=== PATIENT | female | born 1990 | race Caucasian/White ===

== ENCOUNTER → 2016-09-10 | Outpatient (CLI) | payer OTHER ==
[~2016-09-10] MED LIST: PRENTAB69 PO
== END | disposition home or self-care (01) ==
LOC: C.PAPS 10:34
PROVIDERS: ATTEND Physician Assistant
DX: Z01.419 Encounter for gynecological examination (general) (routine) without abnormal findings (principal)

== ENCOUNTER → 2017-04-21 | Outpatient (CLI) | payer OTHER ==
[2017-04-23 01:28] LABS: URCREATININE 197.1 MG/DL (>/= 20)
== END | disposition home or self-care (01) ==
LOC: C.LABBFT 15:21
PROVIDERS: ATTEND Internal Medicine
DX: Z02.1 Encounter for pre-employment examination (principal)

== ENCOUNTER → 2017-06-26 | Outpatient (CLI) | payer OTHER | END | disposition home or self-care (01) | LOC: C.LABSPEC 17:38 | PROVIDERS: ATTEND Obstetrics & Gynecology | DX: Z34.81 Encounter for supervision of other normal pregnancy, first trimester (principal) ==

== ENCOUNTER → 2017-07-03 | Outpatient (CLI) | payer OTHER ==
[2017-07-03 17:29] LABS: BASO % 0.2 %; BASO ABS # 0.02 K/uL (0-0.2); EOS ABS # 0.16 K/uL (0-0.5); HEMATOCRIT 36.1 % (37-47); HEMOGLOBIN 12.4 g/dL (12.0-16.0); IG# 0.01 K/uL (0.00-0.02); LYMPH % 19.8 %; LYMPH ABS # 1.59 K/uL (1.2-3.4); MEAN CELL VOLUME 90.9 fL (80-100); MEAN CORPUSCULAR HEMOGLOBIN 31.2 pg (25-34); MEAN CORPUSCULAR HGB CONC 34.3 g/dl (32-36); MEAN PLATELET VOLUME 9.9 fL (7.4-10.4); MONO % 7.2 %; MONO ABS # 0.58 K/uL (0.11-0.59); NEUT % 70.7 %; NEUT ABS # 5.69 K/uL (1.4-6.5); PLATELET COUNT 177 K/uL (130-400); RED CELL DISTRIBUTION WIDTH CV 12.5 % (11.5-14.5); RED CELL DISTRIBUTION WIDTH SD 41.3 fL (36.4-46.3); WHITE BLOOD COUNT 8.05 K/uL (4.8-10.8)
== END | disposition home or self-care (01) ==
LOC: C.LAB1850 16:22
PROVIDERS: ATTEND Obstetrics & Gynecology
DX: Z34.81 Encounter for supervision of other normal pregnancy, first trimester (principal)

== ENCOUNTER 2017-07-13 11:16 | Emergency (ER) | payer OTHER ==
[~2017-07-13] VITALS: Ht 167.6 cm; Wt 71.3 kg
[2017-07-13 11:29] VITALS: TEMP 36.8; Ht 167.6 cm; Wt 71.3 kg
[2017-07-13] MEDS ORDERED: AMX500 PO (11:51)
[2017-07-13] MEDS ORDERED: PRENTAB26 PO (11:51)
[2017-07-13 12:29] LABS: BASO % 0.3 %; BASO ABS # 0.02 K/uL (0-0.2); EOS % 2.2 %; EOS ABS # 0.14 K/uL (0-0.5); HEMATOCRIT 35.9 % (37-47); HEMOGLOBIN 12.5 g/dL (12.0-16.0); IG# 0.01 K/uL (0.00-0.02); LYMPH % 16.9 %; LYMPH ABS # 1.08 K/uL (1.2-3.4); MEAN CELL VOLUME 89.5 fL (80-100); MEAN CORPUSCULAR HEMOGLOBIN 31.2 pg (25-34); MEAN CORPUSCULAR HGB CONC 34.8 g/dl (32-36); MEAN PLATELET VOLUME 9.7 fL (7.4-10.4); MONO % 6.7 %; MONO ABS # 0.43 K/uL (0.11-0.59); NEUT % 73.7 %; NEUT ABS # 4.72 K/uL (1.4-6.5); PLATELET COUNT 156 K/uL (130-400); RED CELL DISTRIBUTION WIDTH CV 12.7 % (11.5-14.5); RED CELL DISTRIBUTION WIDTH SD 41.1 fL (36.4-46.3)
[2017-07-13 12:47] LABS: ALBUMIN 3.4 gm/dl (3.4-5.0); CALCIUM 8.9 mg/dl (8.5-10.1); CREATININE 0.59 mg/dl (0.60-1.20); POTASSIUM 3.3 mmol/L (3.5-5.1)
--- NOTE | 2017-07-13 14:13 | DIAGNOSTIC IMAGING REPORT ---
<14 WKS SINGLE CLINICAL HISTORY: EVAL IUP, VAGINAL BLEEDING TECHNIQUE: Transabdominal sonography of the pelvis was performed. COMPARISON STUDY: ultrasound July 07, 2017. FINDINGS: Single viable intrauterine gestation is noted. Uterus measures 10 x 6.7 x 5.5 cm. [place]-rump length is 2.66 cm which corresponds to an estimated gestational age of 9 weeks and 3 days. heart rate is normal 173 bpm. Yolk sac measures 4 mm in size. The placenta is located anteriorly without evidence of previa. The cervix appears closed. The right ovary was not visualized. A suspected 1.1 cm left ovarian corpus luteal cyst was noted. IMPRESSION: 1. Single viable intrauterine gestation with normal heart rate of 173 bpm. 2. Anterior placenta. No placental abnormality. 3. Suspected 1.1 cm left ovarian corpus luteal cyst. Nonvisualization of the right ovary. Electronically signed by: Guanaco Peacock M.D. 07/13/2017 2:12 PM Dictated Date/Time: 07/13/2017 1:39 PM
--- NOTE | 2017-07-13 14:57 | EMERGENCY ROOM VISIT NOTE ---
ED Visit Note First contact with patient: 11:32 CHIEF COMPLAINT: Vaginal bleeding 30 minutes HISTORY OF PRESENT ILLNESS: Patient is a roughly 9 week 27-year- old white female patient who presents the emergency department accompanied by her mother for evaluation of vaginal bleeding. Patient reports that her last menstrual period was 05/05/2017. She had a positive home test in mid May, and was recently seen by [facility] TELEPHONE STATION REPAIRER for both her nurse and physician appointment. She had an ultrasound which confirmed an intrauterine . She had normal laboratory studies done for her first visit. Patient states that she has been feeling well, and denies any complications with the thus far. She has had some very slight, minor pelvic cramping. She states that about 30 minutes ago, she went to urinate and noticed that she had bright red blood in her underwear, and bright red blood when she wiped. She denies any pain associated with this. She denies any abdominal trauma or recent heavy lifting, last intercourse was last evening. She denies any urinary symptoms. She is presently taking amoxicillin for a UTI prescribed by the drier operator. She denies any lightheadedness or dizziness. REVIEW OF SYSTEMS: Review of systems as per HPI. All other systems reviewed were negative. 10 systems reviewed. PMH: Electronic medical records are reviewed and summarized as above/below. See Problem List. SOCIAL HISTORY: Patient lives at home with her son. She is employed. Non- smoker. PHYSICAL EXAM: Vital Signs: Reviewed Nurse's notes. CONSTITUTIONAL: Patient is a slightly anxious, otherwise well-appearing 27-year- old white female who is awake and alert and in no distress. Vital signs are stable. EYES: Pupils equal, round, reactive to light and accommodation. EOMs intact without nystagmus. Sclera are anicteric. ENT: Tympanic membranes intact, with normal landmarks. External canals are clear. Oral and nasopharynx are clear. Mucous membranes are moist, no lesions , tongue and gums appear normal. CARDIOVASCULAR: Regular rate and rhythm, with normal S1 and S2, no murmur or gallop or rub is heard. No carotid bruits auscultated. No JVD. Peripheral pulses easily palpable. RESPIRATORY: Breath sounds equal and clear to auscultation without wheezes, rales, or rhonchi heard. Full and equal chest expansion without accessory muscle use or retractions. ABDOMEN: Bowel sounds are present. Abdomen is soft, nontender, nondistended throughout. There is no guarding, rebound or rigidity. INTEGUMENTARY: No lesions or rash, normal skin turgor. LYMPH: No lymphadenopathy. EMERGENCY DEPARTMENT COURSE: The patient was seen and evaluated. Her old records are reviewed, including her recent outpatient laboratory studies. Her blood type is confirmed as B+. She presents the emergency department for evaluation of the abrupt onset of vaginal bleeding this morning. IV lock was initiated and laboratory studies were collected including CBC with differential , CMP and a quantitative hCG. Urinalysis was also collected. Pelvic ultrasound was performed. Laboratory studies noted a normal H&H at 12.5 and 35.9, platelet count 156,000. Chemistries are unremarkable. Quantitative hCG is greater than 95,000, which is consistent with her dates. Urinalysis notes blood and epithelial cells, there are no other indicators for infection. Pelvic ultrasound confirms a single viable intrauterine gestation measuring roughly 9 weeks 3 days, with confirmed cardiac activity at 173 bpm. There is no other significant abnormality noted. All laboratory and diagnostic imaging studies were reviewed with the patient. She was reassured. At this time the source of her bleeding is unclear. There is no evidence for spontaneous miscarriage at this time, differential diagnoses also entertained included subchorionic hemorrhage, placenta previa, placental abruption, coagulopathy, intrauterine demise, among others. The patient was given bleeding precautions. She was encouraged to follow-up with TELEPHONE STATION REPAIRER for further care and evaluation. She was discharged home in stable condition. Medication reconciliation: I attest that I have personally reviewed the patient' s current medication list. Blood pressure screening : Patient was found to have low-normal blood pressure on screening and does not require follow-up. <14 WKS SINGLE CLINICAL HISTORY: EVAL IUP, VAGINAL BLEEDING TECHNIQUE: Transabdominal sonography of the pelvis was performed. COMPARISON STUDY: ultrasound July 07, 2017. FINDINGS: Single viable intrauterine gestation is noted. Uterus measures 10 x 6.7 x 5.5 cm. [place]-rump length is 2.66 cm which corresponds to an estimated gestational age of 9 weeks and 3 days. heart rate is normal 173 bpm. Yolk sac measures 4 mm in size. The placenta is located anteriorly without evidence of previa. The cervix appears closed. The right ovary was not visualized. A suspected 1.1 cm left ovarian corpus luteal cyst was noted. IMPRESSION: 1. Single viable intrauterine gestation with normal heart rate of 173 bpm. 2. Anterior placenta. No placental abnormality. 3. Suspected 1.1 cm left ovarian corpus luteal cyst. Nonvisualization of the right ovary. Problem List Social History Problems: (1) Asthma Status: Chronic Current/Historical Medications Scheduled Amoxicillin (Amoxicillin), Unknown Dose PO TID Multivit/Min/Iron/Fol Ac/Pren ( Vitamin), 1 TAB PO DAILY Allergies Coded Allergies: No Known Allergies (Unverified , 07/13/17) Vital Signs Date Time Temp Pulse Resp B/P (MAP) Pulse Ox O2 Delivery O2 Flow Rate FiO2 07/13/17 15:15 61 111/52 98 07/13/17 13:44 62 114/59 100 Room Air 07/13/17 11:29 36.8 68 20 117/65 100 Room Air Laboratory Results 07/13/17 11:57 Red Blood Count 4.01, Mean Corpuscular Volume 89.5, Mean Corpuscular Hemoglobin 31.2, Mean Corpuscular Hemoglobin Concent 34.8, Mean Platelet Volume 9.7, Neutrophils (%) (Auto) 73.7, Lymphocytes (%) (Auto) 16.9, Monocytes (%) (Auto) 6.7, Eosinophils (%) (Auto) 2.2, Basophils (%) (Auto) 0.3, Neutrophils # (Auto) 4.72, Lymphocytes # (Auto) 1.08, Monocytes # (Auto) 0.43, Eosinophils # (Auto) 0.14, Basophils # (Auto) 0.02 07/13/17 11:57 Test 07/13/17 11:57 07/13/17 12:00 White Blood Count 6.40 K/uL (4.8-10.8) Red Blood Count 4.01 M/uL (4.2-5.4) Hemoglobin 12.5 g/dL (12.0-16.0) Hematocrit 35.9 % (37-47) Mean Corpuscular Volume 89.5 fL (80-100) Mean Corpuscular Hemoglobin 31.2 pg (25-34) Mean Corpuscular Hemoglobin Concent 34.8 g/dl (32-36) Platelet Count 156 K/uL (130-400) Mean Platelet Volume 9.7 fL (7.4-10.4) Neutrophils (%) (Auto) 73.7 % Lymphocytes (%) (Auto) 16.9 % Monocytes (%) (Auto) 6.7 % Eosinophils (%) (Auto) 2.2 % Basophils (%) (Auto) 0.3 % Neutrophils # (Auto) 4.72 K/uL (1.4-6.5) Lymphocytes # (Auto) 1.08 K/uL (1.2-3.4) Monocytes # (Auto) 0.43 K/uL (0.11-0.59) Eosinophils # (Auto) 0.14 K/uL (0-0.5) Basophils # (Auto) 0.02 K/uL (0-0.2) RDW Standard Deviation 41.1 fL (36.4-46.3) RDW Coefficient of Variation 12.7 % (11.5-14.5) Immature Granulocyte % (Auto) 0.2 % Immature Granulocyte # (Auto) 0.01 K/uL (0.00-0.02) Anion Gap 10.0 mmol/L (3-11) Est Creatinine Clear Calc Drug Dose 144.9 ml/min Estimated GFR () 145.6 Estimated GFR (Non- 125.6 BUN/Creatinine Ratio 9.7 (10-20) Calcium Level 8.9 mg/dl (8.5-10.1) Total Bilirubin 0.3 mg/dl (0.2-1) Aspartate Amino Transf (AST/SGOT) 10 U/L (15-37) Alanine Aminotransferase (ALT/SGPT) 15 U/L (12-78) Alkaline Phosphatase 52 U/L (45-117) Total Protein 7.0 gm/dl (6.4-8.2) Albumin 3.4 gm/dl (3.4-5.0) Globulin 3.6 gm/dl (2.5-4.0) Albumin/Globulin Ratio 0.9 (0.9-2) Human Chorionic Gonadotropin, Quant 54060 mIU/mL Urine Color YELLOW Urine Appearance CLEAR (CLEAR) Urine pH 5.0 (4.5-7.5) Urine Specific [place] 1.018 (1.000-1.030) Urine Protein NEG (NEG) Urine Glucose (UA) NEG (NEG) Urine Ketones NEG (NEG) Urine Occult Blood 3+ (NEG) Urine Nitrite NEG (NEG) Urine Bilirubin NEG (NEG) Urine Urobilinogen NEG (NEG) Urine Leukocyte Esterase NEG (NEG) Urine WBC (Auto) 0 /hpf (0-5) Urine RBC (Auto) >30 /hpf (0-4) Urine Hyaline Casts (Auto) 1-5 /lpf (0-5) Urine Epithelial Cells (Auto) >30 /lpf (0-5) Urine Bacteria (Auto) NEG (NEG) Departure Information Impression Primary Impression: Vaginal bleeding affecting early Referrals Sandra Peacock M.D. (PCP) Patient Instructions My [facility] Additional Instructions Acetaminophen(Tylenol) may be used for fever or pain. Use 1000mg every six hours as needed. Avoid using more than 3000mg in a 24 hour period. Rest and avoid any heavy lifting or strenuous activity. Strict vaginal rest-no tampons, douching or intercourse. Drink plenty of fluids. Diet as tolerated. Follow up with TELEPHONE STATION REPAIRER by phone tomorrow to notify them of your emergency department visit, and to set up a follow-up appointment. Return to the ED for worsening pain, heavier bleeding (soaking a pad in an hour or less, passing clots larger than your fist), lightheadedness, dizziness, passing out, worsening of your condition or as needed.
[2017-07-13 15:15] VITALS: BP 111/52; PULSE 61; O2SAT 98
== END 2017-07-13 15:16 | disposition home or self-care (01) ==
LOC: C.EDB 11:17 → C.EDC 15:16
DX: O20.8 Other hemorrhage in early pregnancy (principal); Z3A.09 9 weeks gestation of pregnancy; J45.909 Unspecified asthma, uncomplicated

== ENCOUNTER → 2017-09-01 | Outpatient (CLI) | payer BC ==
[~2017-09-01] MED LIST changes: +AMX500 PO; +PRENTAB26 PO; -PRENTAB69 PO
== END | disposition home or self-care (01) ==
LOC: C.LAB1850 15:42
PROVIDERS: ATTEND Obstetrics & Gynecology
DX: Z34.82 Encounter for supervision of other normal pregnancy, second trimester (principal)